=== PATIENT | male | born 1940 | race Caucasian/White ===

== ENCOUNTER 2016-10-22 10:24 | Inpatient (IN) | payer OTHER ==
[~2016-10-22] VITALS: Ht 180.3 cm; Wt 98.4 kg
[2016-10-22 10:52] LABS: ABSOLUTE BASOPHIL COUNT 0 /CUMM (0.0-0.2); ABSOLUTE EOSINOPHIL COUNT 0.1 /CUMM (0.0-0.7); ABSOLUTE GRANULOCYTE CT 4.5 /CUMM (1.4-6.5); ABSOLUTE LYMPH COUNT 1.8 /CUMM (1.2-3.4); ABSOLUTE MONOCYTE COUNT 0.5 /CUMM (0.10-0.60); BASOPHIL % 0.2 % (0.0-2.0); EOSINOPHIL % 1.5 % (0-5); GRANULOCYTE % 65.8 % (42.2-75.2); HEMATOCRIT 42.4 % (42-52); MEAN CORPUSCULAR HGB CONC 33.7 G/DL (33.0-37.0); MEAN CORPUSCULAR VOLUME 94.8 FL (80.0-94.0); MEAN PLATELET VOLUME 7.9 FL (7.4-10.4); PLATELET COUNT 157 /CUMM (130-400); RBC DISTRIBUTION WIDTH 13.4 % (11.5-14.5); RED BLOOD CELL CT 4.48 /CUMM (4.70-6.10); WHITE BLOOD CELL COUNT 6.9 /CUMM (4.8-10.8)
[2016-10-22] MEDS ORDERED: CRESTOR10 M1 PO (12:12)
[2016-10-22] MEDS ORDERED: TAMSULOSIN HCL0.4 M1 PO (12:12)
--- NOTE | 2016-10-22 13:38 | Cons- Cardiology ---
General Information and HPI Consulting Request Date of Consult: 10/22/16 Requested By: Dr. Abdullahi Reason for Consult: Recent onset atrial fibrillation/atrial flutter Source of Information: patient, family, old records Exam Limitations: no limitations History of Present Illness: 75 year old male known to me from recent office visits. He was in his usual state of health until earlier today when he developed worsening sustained palpitations. IN the ER he was noted to be in atrial flutter with a rapid rate which subsequently degenerated into atrial fibrillation. THe patient denies any other symptoms. He notes that he was working in the heat yesterday and also had "several" beers. In the ER he was given IV cardizem with improvement in the rate. Of note, he had a complete cardiovascular evaluation over the last month, including a stress test and echo which were normal Allergies/Medications Allergies: Coded Allergies: Penicillins (RASH 10/22/16) Home Med List: Rosuvastatin Calcium (Crestor) 10 MG TABLET 1 TAB PO DAILY CHOLESTEROL ( Reported) Tamsulosin HCl 0.4 MG CAP.ER.24H 1 CAP PO DAILY PROSTATE (Reported) Current Medications: Current Medications Sig/Urbano Start time Last Medication Dose Route Stop Time Status Admin Diltiazem HCl 10 MG ONCE ONE 10/22 1300 DC 10/22 IV 10/22 1301 1230 Diltiazem HCl 0 .STK-MED ONE 10/22 1222 DC .ROUTE Heparin Sodium/ 25,000 UNIT Q24H 10/22 1245 AC 10/22 Dextrose IV 1256 Dextrose/Water 500 ML Metoprolol Tartrate 0 .STK-MED ONE 10/22 1210 DC IV Metoprolol Tartrate 5 MG ONCE ONE 10/22 1200 DC 10/22 IV 10/22 1201 1210 Metoprolol Tartrate 0 .STK-MED ONE 10/22 1136 DC IV Metoprolol Tartrate 5 MG ONCE ONE 10/22 1130 DC 10/22 IV 10/22 1131 1141 Past History Travel History Traveled to [place] past 21 day Yes Medical History Cardiovascular: hyperlipidemia Exam & Diagnostic Data Vital Signs and I&O Vital Signs Date Time Temp Pulse Resp B/P B/P Pulse O2 O2 Flow FiO2 Mean Ox Delivery Rate 10/22 1249 79 18 139/88 98 Room Air 10/22 1230 136 130/91 10/22 1227 77 10/22 1218 138 16 133/91 98 Room Air 10/22 1210 130 137/90 10/22 1144 168 18 137/90 98 Room Air 10/22 1142 98 Room Air 10/22 1141 139 135/92 10/22 1035 98.6 139 18 135/92 98 Room Air Intake & Output 10/22 1600 10/22 0800 10/22 0000 10/21 1600 10/21 0800 10/21 0000 Intake Total 10 Output Total Balance 10 Intake, IV 10 Patient 217 lb Weight Weight Reported by Patient Measurement Method Physical Exam: General Appearance Alert, Oriented X3, Cooperative, VSS Skin Normal Neck Supple, No JVD, No thryomegaly, carotids normal bilaterally Cardiovascular Normal S1, Normal S2, irregular rate, 1/6 systolc murmur Lungs Clear to Auscultation bilaterally Abdomen Soft, No Tenderness Neurological Normal / nonfocal Extremities No Clubbing, No Cyanosis, Normal Pulses, No Tenderness/Swelling Labs/Rafat Results: Laboratory Tests 10/22 1040 Chemistry Sodium (137 - 145 mmol/L) 139 Potassium (3.5 - 5.1 mmol/L) 4.3 Chloride (98 - 107 mmol/L) 104 Carbon Dioxide (22 - 30 mmol/L) 25 Anion Gap (5 - 16) 10 BUN (9 - 20 mg/dL) 15 Creatinine (0.7 - 1.2 mg/dL) 0.8 Estimated GFR (>60 ml/min) > 60 BUN/Creatinine Ratio (7 - 25 %) 18.8 Glucose (65 - 99 mg/dL) 98 Calcium (8.4 - 10.2 mg/dL) 9.0 Phosphorus (2.5 - 4.5 mg/dL) 3.3 Magnesium (1.6 - 2.3 mg/dL) 2.1 Total Bilirubin (0.2 - 1.3 mg/dL) 0.8 AST (17 - 59 U/L) 28 ALT (21 - 72 U/L) 40 Alkaline Phosphatase (< 127 U/L) 63 Troponin I (<0.11 ng/ml) < 0.01 Total Protein (6.3 - 8.2 g/dL) 7.1 Albumin (3.5 - 5.0 g/dL) 4.2 Globulin (1.9 - 4.2 gm/dL) 2.9 Albumin/Globulin Ratio (1.1 - 2.2 %) 1.4 Coagulation PT Pending INR Pending APTT Pending Hematology CBC w Diff NO MAN DIFF REQ WBC (4.8 - 10.8 /CUMM) 6.9 RBC (4.70 - 6.10 /CUMM) 4.48 L Hgb (14.0 - 18.0 G/DL) 14.3 Hct (42 - 52 %) 42.4 MCV (80.0 - 94.0 FL) 94.8 H MCH (27.0 - 31.0 PG) 32.0 H RDW (11.5 - 14.5 %) 13.4 Plt Count (130 - 400 /CUMM) 157 MPV (7.4 - 10.4 FL) 7.9 Gran % (42.2 - 75.2 %) 65.8 Lymphocytes % (20.5 - 51.1 %) 25.9 Monocytes % (1.7 - 9.3 %) 6.6 Eosinophils % (0 - 5 %) 1.5 Basophils % (0.0 - 2.0 %) 0.2 Absolute Granulocytes (1.4 - 6.5 /CUMM) 4.5 Absolute Lymphocytes (1.2 - 3.4 /CUMM) 1.8 Absolute Monocytes (0.10 - 0.60 /CUMM) 0.5 Absolute Eosinophils (0.0 - 0.7 /CUMM) 0.1 Absolute Basophils (0.0 - 0.2 /CUMM) 0 PUBS MCHC (33.0 - 37.0 G/DL) 33.7 Diagnostic Data EKG Results ECG #1-atrial flutter with [address]-T changes ECG #2-atrial fibrillation with improved rate control. Assessment/Plan Assessment/Plan Assessment: 1. Atrial fibrillation/atrial flutter of recent onset 2. HLD 3. BPH Recommendations: -Monitor on 1 Goodman telemetry -IV Cardizem at 2.5 mg per hour, further adjusted as per her rate control -Full laboratory evaluation including troponin 2, TSH, etc. -There is no need to repeat echocardiogram. The patient has had an echo within the last 2 months. -Monitor overnight. If stable with reversion to sinus rhythm or with good rate control in a.m., transition to oral Cardizem for rate/rhythm control and begin Eliquis 5 mg twice a day for protection against cardioembolism. - Followuop with me in the office post discharge for further plans Consult Acknowledgment - Thank you for your consult request.
[2016-10-22 14:25] LABS: PT 10.1 SEC (9.4-12.5); PTT 29 SEC (25-37)
--- NOTE | 2016-10-22 14:26 | ED CARDIAC/CP/PALPITATIONS ---
History of Present Illness General Chief Complaint: Chest Pain Stated Complaint: SIB WALK IN FOR ABNORMAL EKG,CHEST PAIN Source: patient Exam Limitations: no limitations Vital Signs & Intake/Output Vital Signs & Intake/Output Vital Signs Date Time Temp Pulse Resp B/P B/P Pulse O2 O2 Flow FiO2 Mean Ox Delivery Rate 10/22 1840 98.2 91 16 137/71 99 Room Air 10/22 1649 98.0 84 18 128/76 98 Room Air 10/22 1445 97.0 89 16 103/59 98 Room Air 10/22 1440 126 10/22 1440 126 16 98 Room Air 10/22 1249 79 18 139/88 98 Room Air 10/22 1230 136 130/91 10/22 1227 77 10/22 1218 138 16 133/91 98 Room Air 10/22 1210 130 137/90 10/22 1144 168 18 137/90 98 Room Air 10/22 1142 98 Room Air 10/22 1141 139 135/92 10/22 1035 98.6 139 18 135/92 98 Room Air Allergies Coded Allergies: Penicillins (RASH 10/22/16) Reconcile Medications Rosuvastatin Calcium (Crestor) 10 MG TABLET 1 TAB PO DAILY CHOLESTEROL ( Reported) Tamsulosin HCl 0.4 MG CAP.ER.24H 1 CAP PO DAILY PROSTATE (Reported) Triage Note: 75 YO MALE TO TRIAGE FROM URGENT CARE. STATES HE WOKE UP THIS AM AND THOUGHT HE WAS HAVING ACID RELUX. STATES HE FELT HIS HEART RACING. DENIES PAIN. DENIES SOB. HR 130s AT THIS TIME. EKG COMPELTE ON ARRIVAL. PT TOOK ASPIRIN 375MG AT HOME PRIOR TO GOING TO URGENT CARE. Triage Nurses Notes Reviewed? yes HPI: Mr. Bautista is a 75 yo m w/ PMH of HLD and BPH denting the emergency department for palpitations. Patient states he noted this morning that his heart rate was about 130 bpm. He states he was working in the garden yesterday and was noted to be quite short of breath. He thought it was related to the warm weather and doing something physical outside. She did note some heart fluttering last night before going to bed. Patient denies any chest pain, cough, abdominal pain, nausea, vomiting, diarrhea. His states that he had recently been worked up by Dr. Pandey for atypical chest pain with a stress test, which was normal. She does endorse some shortness of breath with exertion. Past History Travel History Traveled to [place] past 21 day Yes Medical History Any Pertinent Medical History? see below for history Cardiovascular: hyperlipidemia Surgical History Surgical History: none Psychosocial History What is your primary language Urdu Tobacco Use: Never used Family History Hx Contributory? No Review of Systems Review of Systems Constitutional: Reports: see HPI. EENTM: Reports: no symptoms. Respiratory: Reports: short of breath. Cardiovascular: Reports: palpitations. GI: Reports: no symptoms. Genitourinary: Reports: no symptoms. Musculoskeletal: Reports: no symptoms. Skin: Reports: no symptoms. Neurological/Psychological: Reports: no symptoms. Hematologic/Endocrine: Reports: no symptoms. Immunologic/Allergic: Reports: no symptoms. All Other Systems: Reviewed and Negative Physical Exam Physical Exam General Appearance: well developed/nourished, no apparent distress, alert, awake , comfortable Head: atraumatic, normal appearance Eyes: Bilateral: normal appearance, PERRL, EOMI. Ears, Nose, Throat: normal pharynx, normal ENT inspection, hearing grossly normal Neck: normal inspection, supple, full range of motion Respiratory: normal breath sounds, chest non-tender, no respiratory distress Cardiovascular: regular rate/rhythm Gastrointestinal: normal bowel sounds Rectal: deferred Back: normal inspection, normal range of motion Extremities: normal inspection, normal capillary refill, normal range of motion, no edema Neurologic/Psych: no motor/sensory deficits, awake, alert, oriented x 3, normal gait, normal mood/affect Skin: intact, normal color, warm/dry Core Measures ACS in differential dx? Yes ASA ordered for poss ACS? no already given today Severe Sepsis Present: No Septic Shock Present: No Progress Differential Diagnosis: AMI, atrial fibrillation, CHF/pulm edema, hyperkalemia, hypovolemia, hyperthyroid, PVCs/PACs, unstable angina, V-fib/V-Tach, atrial flutter Plan of Care: Orders Procedure Date/time Status CBC WITHOUT DIFFERENTIAL 10/23 06 Active BASIC ELECTROLYTES PLUS BUN&CR 10/23 0600 Active Heart Healthy Diet 10/22 D Active TROPONIN LEVEL 10/22 2300 Active EKG 10/22 2300 Active PARTIAL THROMBOPLASTIN TIME 10/22 1900 Active TROPONIN LEVEL 10/22 1700 Active EKG 10/22 1700 Active Pathway - chart 10/22 1629 Active Code Status 10/22 1629 Active Add-on Test (ER Only) 10/22 1601 Active ED Holding Orders 10/22 1559 Active Vital Signs 10/22 1559 Active Code Status 10/22 1559 Complete Admit to inpatient 10/22 1425 Active Patient Data 10/22 1333 Active Add-on Test (ER Only) 10/22 1247 Active PARTIAL THROMBOPLASTIN TIME 10/22 1243 Complete EKG 10/22 1227 Active Add-on Test (ER Only) 10/22 1125 Active Intake & Output 10/22 1111 Active THYROID STIMULATING HORMONE 10/22 1040 Active PROTHROMBIN TIME 10/22 1040 Complete PHOSPHORUS 10/22 1040 Active MAGNESIUM 10/22 1040 Active GLYCOSYLATED HGB 10/22 1040 Active FREE T4 10/22 1040 Active TROPONIN LEVEL 10/22 1037 Active COMPREHENSIVE METABOLIC PANEL 10/22 1037 Active CBC WITHOUT DIFFERENTIAL 10/22 1037 Complete EKG 10/22 1026 Active Pathway - chart 10/22 UNK Active House Staff 10/22 UNK Active Lab Add-on Test 10/22 UNK Active VTE Mechanical Prophylaxis 10/22 UNK Active Vital Signs 10/22 UNK Active Telemetry/Conventions Reservationist 10/22 UNK Active Current Medications Sig/Urbano Start time Last Medication Dose Stop Time Status Admin Tamsulosin HCl 0.4 MG DAILY 10/23 1000 AC (Flomax) Atorvastatin Calcium 40 MG 1700 10/22 1700 AC (Lipitor) Acetaminophen 650 MG Q6P PRN 10/22 1630 AC (Tylenol) Hydromorphone HCl 0.5 MG Q4P PRN 10/22 1630 AC (Dilaudid) Oxycodone/ 1 TAB Q6P PRN 10/22 1630 AC Acetaminophen (Percocet) Diltiazem HCl 125 MG Q24H 10/22 1545 AC 10/22 (Cardizem DRIP) 1640 Sodium Chloride 100 ML (Normal Saline 0.9%) Ceftriaxone Sodium 1,000 MG ONCE ONE 10/22 1445 CAN (Rocephin) 10/22 1446 Diltiazem HCl 90 MG ONCE ONE 10/22 1445 CAN (Cardizem) 10/22 1446 Heparin Sodium/ 25,000 UNIT Q24H 10/22 1245 AC 10/22 Dextrose 1256 (Heparin) Dextrose/Water 500 ML (D5W) Laboratory Tests 10/22/16 1756: Troponin I Pending 10/22/16 1040: Anion Gap 10, Estimated GFR > 60, BUN/Creatinine Ratio 18.8, Glucose 98, Hemoglobin A1c Pending, Calcium 9.0, Phosphorus 3.3, Magnesium 2.1, Total Bilirubin 0.8, AST 28, ALT 40, Alkaline Phosphatase 63, Troponin I < 0.01, Total Protein 7.1, Albumin 4.2, Globulin 2.9, Albumin/Globulin Ratio 1.4, TSH 0.818, Free T4 1.20, PT 10.1, INR 0.96, APTT 29, CBC w Diff NO MAN DIFF REQ, RBC 4.48 L, MCV 94.8 H, MCH 32.0 H, RDW 13.4, MPV 7.9, Gran % 65.8, Lymphocytes % 25.9, Monocytes % 6.6, Eosinophils % 1.5, Basophils % 0.2, Absolute Granulocytes 4.5, Absolute Lymphocytes 1.8, Absolute Monocytes 0.5, Absolute Eosinophils 0.1, Absolute Basophils 0, PUBS MCHC 33.7 Patient is generally well-appearing male with tachycardia. Heart rate noted to be in the 130s and regular. EKG concerning for atrial flutter with block and rapid ventricular response. Patient is chest pain-free. states she gave him a full aspirin this morning. Given his constellation of symptoms with palpitations and increased shortness of breath yesterday, likely that the patient was in A. fib flutter for at least 24 hours. Recent stress is otherwise unremarkable. Patient given metoprolol 5 mg IV push with minimal change in heart rate. A repeat dose of metoprolol 5 mg IV push was given with again minimal effect on heart rate. At this point in time patient was given diltiazem 10 mg IV push with improvement in heart rate. Repeat EKG shows that the patient is in atrial flutter with a 4-1 AV block at a rate of 69. 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 Patient had another episode of a flutter with RVR, was given 5 mg IV tilt which actually stopped the flutter. Patient was then started on a diltiazem drip. Patient and are comfortable with the plan. Patient will be admitted for IV diltiazem as well as IV heparin until he can be transitioned into a by mouth anticoagulated and discharged safely. ([facility],OBED) Initial ED EKG: atrial flutter with rapid ventricular response Prior EKG: changed (previous normal sinus rhythm) Departure Departure Time of Disposition: 1702 Disposition: STILL A PATIENT Condition: Stable Clinical Impression Primary Impression: Atrial flutter with rapid ventricular response Secondary Impressions: Palpitations Referrals: CYNTHIA COX MD (PCP/Family) Departure Forms: Customer Survey General Discharge Information Admission Note Spoke With: CYNTHIA COX MD Documentation of Exam: Documentation of any treatments & extenuating circumstances including Concerns Regarding Discharge (functional status, medication knowledge or non-compliance, living conditions, etc.) that warrant an admission rather than observation: 75-year-old male being admitted as an inpatient for atrial flutter with rapid ventricular response on diltiazem infusion IV. Patient was also started on an IV heparin drip as this has been ongoing for likely over 24 hours. Patient will require an ultrasound as an inpatient to assess for possible valvular issues ( small thombus that might have possible formed) prior to cardioversion. Critical Care Note Critical Care Note Critical Care Time: 30-74 min (32)
--- NOTE | 2016-10-22 15:45 | History & Physical ---
See Addendum General Information and HPI Source of Information: patient, family, old records Exam Limitations: no limitations History of Present Illness: This is a 75-year-old male with a past medical history of hyperlipidemia and benign prostate hyperplasia who comes to the [facility] with increased palpitations and feeling off"fluttering sensation" in his chest. The patient was within normal limits in the morning when he started feeling that his heart was beating too fast. He went to see an outpatient outpatient walk-in clinic who when checked his pulse found to be irregular and beating fast and recommended to come to the ER further evaluation Patient's initial heart rate was between 120s to 140s and the heart monitor showed atrial flutter.. Fibrillation The patient did not exhibit any chest pain. The patient still had some mild chest discomfort with irregular heartbeat in the ER but was normalized after giving Cardizem push. The patient does not have any significant risk factors except for hyperlipidemia. He is he's not a diabetic, not hypertensive. He does not smoke. The patient also received one push of metoprolol for which he did not respond . Allergies/Medications Allergies: Coded Allergies: Penicillins (RASH 10/22/16) Home Med list Rosuvastatin Calcium (Crestor) 10 MG TABLET 1 TAB PO DAILY CHOLESTEROL ( Reported) Tamsulosin HCl 0.4 MG CAP.ER.24H 1 CAP PO DAILY PROSTATE (Reported) Past History Travel History Traveled to [place] past 21 day Yes Medical History Cardiovascular: hyperlipidemia Surgical History Surgical History: none Past Family/Social History Family History Relations & Conditions if any MOTHER Relation not specified for: FH: hypertension Review of Systems Review of Systems Constitutional: Reports: see HPI. EENTM: Reports: see HPI. Cardiovascular: Reports: see HPI. Denies: chest pain, orthopena, palpitations, peripheral edema. Respiratory: Reports: see HPI. GI: Reports: see HPI. Genitourinary: Reports: see HPI. Musculoskeletal: Reports: see HPI. Exam & Diagnostic Data Last 24 Hrs of Vital Signs/I&O Vital Signs Date Time Temp Pulse Resp B/P B/P Pulse O2 O2 Flow FiO2 Mean Ox Delivery Rate 10/22 1445 97.0 89 16 103/59 98 Room Air 10/22 1440 126 10/22 1440 126 16 98 Room Air 10/22 1249 79 18 139/88 98 Room Air 10/22 1230 136 130/91 10/22 1227 77 10/22 1218 138 16 133/91 98 Room Air 10/22 1210 130 137/90 10/22 1144 168 18 137/90 98 Room Air 10/22 1142 98 Room Air 10/22 1141 139 135/92 10/22 1035 98.6 139 18 135/92 98 Room Air Intake & Output 10/22 1600 10/22 0800 10/22 0000 Intake Total 10 Output Total Balance 10 Intake, IV 10 Patient 217 lb Weight Weight Reported by Patient Measurement Method Physical Exam General Appearance Alert, Oriented X3, Cooperative Skin No Rashes, No Breakdown, No Significant Lesion Sepsis Skin Exam (color): Normal for Ethnicity Neck Supple, No JVD, No thryomegaly Cardiovascular Normal S1, Normal S2, irregular rate. Lungs Clear to Auscultation, Normal Air Movement Abdomen Soft, No Tenderness Neurological Normal Gait Extremities No Clubbing, No Cyanosis, Normal Pulses, No Tenderness/Swelling Diagnostic Data EKG Results ECG #1-atrial flutter with [address]-T changes ECG #2-atrial fibrillation with improved rate control. Assessment/Plan Assessment: This is a [age]-year-old male with a past medical history of hyperlipidemia who presented to the [facility] with increased palpitations and slight discomfort in the chest. The patient was found to be rapid atrial fibrillation with rapid ventricular response in the ER Vitals at the time of admission showed heart rate of 126, respiration rate of 16 , saturation 98% on room air, blood pressure of 138/78 Labs shows: WBC of 6.9, hemoglobin of 14.3 hematoc sodium of 139, potassium of 4.3 rest of the electrolytes within normal limits EKG shows ECG #1-atrial flutter with [address]-T changes ECG #2-atrial fibrillation with improved rate control. Assessment 1. New onset atrial fibrillation with rapid ventricular response:EUGENIA VAS scorre is 1(HbA1c still pending) 2. History of hyperlipidemia 3. History of benign prostate hyperplasia Plan Admit to telemetry floor Serial troponins and EKG Check Hba1c to calculate EUGENIA VAS score Will check TSH and magnesium levels Continue with IV Cardizem drip at 2.5 (HR BETWEEEN LATE 80'S)and titrate. The patient should be on the Cardizem drip for at least 24 hours Continue with IV heparin for full anticoagulation Patient might be converted to normal anticoagulation in the morning Plan to switch him to oral medications at morning if remains hemodynamically stable DVT prophylaxis as above Appreciate Dr. Turcios's input Patient is full code As Ranked By This Provider Problem List: 1. Atrial fibrillation Core Measures/Miscellaneous Acute Coronary Syndrome ACS Diagnosis: No Cerebrovascular Accident CVA/TIA Diagnosis: No Congestive Heart Failure CHF Diagnosis: No Venous Thromboembolism VTE Risk Factors: Acute medical illness, Age > 40 No Mech VTE prophylaxis d/t: VTE low risk, No contraindications No VTE Pharm Prophylaxis d/t: VTE low risk, No contraindications VTE Diagnosis: No VTE Type: NONE VTE Confirmed by (Test): NONE Severe Sepsis Severe Sepsis Present: No Septic Shock Septic Shock Present: No Miscellaneous Documentation Attending Case Discussed With: CYNTHIA COX MD Primary Care Physician: CYNTHIA COX MD Patient sees these Specialists dr turcios Level of Patient Care: Telemetry
[2016-10-22 19:47] LABS: PTT 80 SEC (25-37)
[2016-10-22 21:54] VITALS: BP 122/80
[2016-10-23 00:17] VITALS: BP 128/84
[2016-10-23 07:53] LABS: ABSOLUTE BASOPHIL COUNT 0 /CUMM (0.0-0.2); ABSOLUTE EOSINOPHIL COUNT 0.2 /CUMM (0.0-0.7); ABSOLUTE GRANULOCYTE CT 4.3 /CUMM (1.4-6.5); ABSOLUTE LYMPH COUNT 2.3 /CUMM (1.2-3.4); ABSOLUTE MONOCYTE COUNT 0.5 /CUMM (0.10-0.60); BASOPHIL % 0.4 % (0.0-2.0); GRANULOCYTE % 58.2 % (42.2-75.2); HEMATOCRIT 44.7 % (42-52); MEAN CORPUSCULAR HGB 32.3 PG (27.0-31.0); MEAN CORPUSCULAR HGB CONC 33.4 G/DL (33.0-37.0); MEAN CORPUSCULAR VOLUME 96.5 FL (80.0-94.0); MEAN PLATELET VOLUME 8.2 FL (7.4-10.4); PLATELET COUNT 158 /CUMM (130-400); RBC DISTRIBUTION WIDTH 13.3 % (11.5-14.5); RED BLOOD CELL CT 4.63 /CUMM (4.70-6.10); WHITE BLOOD CELL COUNT 7.4 /CUMM (4.8-10.8)
[2016-10-23 08:03] VITALS: BP 112/70
[2016-10-23 08:53] LABS: PTT > 120 SEC (25-37)
--- NOTE | 2016-10-23 09:17 | Patient Discharge Instructions ---
Discharge Instructions General Discharge Information You were seen/treated for: paplitataions and elevate irregular heart rate Special Instructions: you need to be strictly complaint with the new blood thinner (Eliquis) and medication to control your heart rate (Cardizem) that is prescribed to you. Please set an appointment with dr turcios 1 week of discharge. Acute Coronary Syndrome Inclusion Criteria At DC or during hospital stay patient has or had the following: ACS DIAGNOSIS No Discharge Core Measures Meds if any: Prescribed or Continued at Discharge Meds if any: NOT Prescribed or Continued at Discharge Congestive Heart Failure Inclusion Criteria At DC or during hospital stay patient has or had the following: CHF DIAGNOSIS No Discharge Core Measures Meds if any: Prescribed or Continued at Discharge Meds if any: NOT Prescribed or Continued at Discharge Cerebrovascular accident Inclusion Criteria At DC or during hospital stay patient has or had the following: CVA/TIA Diagnosis No Discharge Core Measures Meds if any: Prescribed or Continued at Discharge Meds if any: NOT Prescribed or Continued at Discharge Venous thromboembolism Inclusion Criteria VTE Diagnosis No VTE Type NONE VTE Confirmed by (Test) NONE Discharge Core Measures - Per Current guidelines, there needs to be overlap - treatment for the first 5 days of Warfarin therapy. - If discharged on Warfarin prior to 5 days of - overlap therapy, the patient will need to be - assessed for post discharge needs including - *Post discharge parental anticoagulation - *Warfarin and/or parental anticoagulation education - *Follow up date to check INR post discharge At least 5 days overlap therapy as Inpatient No Meds if any: Prescribed or Continued at Discharge Note: Overlap Therapy is Warfarin and Anticoagulant Meds if any: NOT Prescribed or Continued at Discharge
--- NOTE | 2016-10-23 11:57 | PN- Cardiology ---
Subjective Subjective: The patient is feeling well. He remains in atrial fibrillation with rate under control. He had episodes of rapid rate overnight. He is currently on Cardizem and heparin drips. Objective Vital Signs and I&Os Vital Signs Date Time Temp Pulse Resp B/P B/P Pulse O2 O2 Flow FiO2 Mean Ox Delivery Rate 10/23 0910 96 112/70 10/23 0803 98.6 96 18 112/70 94 Room Air 10/23 0017 97.7 79 20 128/84 95 Room Air 10/22 2154 97.9 70 20 122/80 96 Room Air 10/22 2033 96.7 76 20 128/79 95 Room Air 10/22 1840 98.2 91 16 137/71 99 Room Air 10/22 1649 98.0 84 18 128/76 98 Room Air 10/22 1445 97.0 89 16 103/59 98 Room Air 10/22 1440 126 10/22 1440 126 16 98 Room Air 10/22 1249 79 18 139/88 98 Room Air 10/22 1230 136 130/91 10/22 1227 77 10/22 1218 138 16 133/91 98 Room Air 10/22 1210 130 137/90 Intake & Output 10/23 1600 10/23 0800 10/23 0000 10/22 1600 10/22 0800 10/22 0000 Intake Total 575 360 10 Output Total 400 950 600 Balance 175 -590 -590 Intake, IV 215 10 Intake, Oral 360 360 Output, Urine 400 950 600 Patient 217 lb 217 lb Weight Weight Standing Scale Reported by Patient Measurement Method Physical Exam: Gen: NAD HEENT: normal Lungs: clear to auscultation, normal resp. effort Heart: Irregularly irregular, S1, S2, 1/6 systolic murmur Abdomen: Soft, nontender, no masses Extremities: No clubbing, cyanosis, or edema. Neuro: Alert and oriented x 3, cranial nerves intact Current Medications: Current Medications Sig/Urbano Start time Last Medication Dose Route Stop Time Status Admin Acetaminophen 650 MG Q6P PRN 10/22 1630 AC PO Apixaban 5 MG BID 10/23 1200 UNVr PO Atorvastatin Calcium 40 MG 1700 10/22 1700 AC PO Ceftriaxone Sodium 1,000 MG ONCE ONE 10/22 1445 CAN IV 10/22 1446 Diltiazem HCl 120 MG DAILY 10/23 1200 UNVr PO Diltiazem HCl 0 .STK-MED ONE 10/23 0845 DC IV 10/23 0846 Diltiazem HCl 125 MG Q24H 10/23 0845 DC 10/23 Dextrose/Water 100 ML IV 0911 Diltiazem HCl 60 MG Q8 10/23 0837 DC PO Diltiazem HCl 0 .STK-MED ONE 10/22 1636 DC IV Diltiazem HCl 125 MG Q24H 10/22 1545 DC 10/22 Sodium Chloride 100 ML IV 1640 Diltiazem HCl 10 MG ONCE ONE 10/22 1445 DC 10/22 IV 10/22 1446 1440 Diltiazem HCl 0 .STK-MED ONE 10/22 1445 DC .ROUTE Diltiazem HCl 90 MG ONCE ONE 10/22 1445 CAN PO 10/22 1446 Diltiazem HCl 10 MG ONCE ONE 10/22 1300 DC 10/22 IV 10/22 1301 1230 Diltiazem HCl 0 .STK-MED ONE 10/22 1222 DC .ROUTE Heparin Sodium/ 25,000 UNIT Q24H 10/22 1245 AC 10/23 Dextrose IV 0531 Dextrose/Water 500 ML Hydromorphone HCl 0.5 MG Q4P PRN 10/22 1630 AC IV Metoprolol Tartrate 0 .STK-MED ONE 10/22 1210 DC IV Metoprolol Tartrate 5 MG ONCE ONE 10/22 1200 DC 10/22 IV 10/22 1201 1210 Oxycodone/ 1 TAB Q6P PRN 10/22 1630 AC Acetaminophen PO Tamsulosin HCl 0.4 MG DAILY 10/23 1000 AC 10/23 PO 0910 Results Last 48 Hrs of Labs/Mics: Laboratory Tests 10/23/16 0646: Anion Gap 10, Estimated GFR > 60, BUN/Creatinine Ratio 17.5, APTT > 120 *H, CBC w Diff NO MAN DIFF REQ, RBC 4.63 L, MCV 96.5 H, MCH 32.3 H, RDW 13.3, MPV 8.2 , Gran % 58.2, Lymphocytes % 31.2, Monocytes % 7.2, Eosinophils % 3.0, Basophils % 0.4, Absolute Granulocytes 4.3, Absolute Lymphocytes 2.3, Absolute Monocytes 0.5, Absolute Eosinophils 0.2, Absolute Basophils 0, PUBS MCHC 33.4 10/22/16 2247: Troponin I < 0.01 10/22/16 1915: APTT 80 H 10/22/16 1756: Troponin I 0.01 10/22/16 1040: Anion Gap 10, Estimated GFR > 60, BUN/Creatinine Ratio 18.8, Glucose 98, Hemoglobin A1c 5.5, Calcium 9.0, Phosphorus 3.3, Magnesium 2.1, Total Bilirubin 0.8, AST 28, ALT 40, Alkaline Phosphatase 63, Troponin I < 0.01, Total Protein 7.1, Albumin 4.2, Globulin 2.9, Albumin/Globulin Ratio 1.4, TSH 0.818, Free T4 1.20, PT 10.1, INR 0.96, APTT 29, CBC w Diff NO MAN DIFF REQ, RBC 4.48 L, MCV 94.8 H, MCH 32.0 H, RDW 13.4, MPV 7.9, Gran % 65.8, Lymphocytes % 25.9, Monocytes % 6.6, Eosinophils % 1.5, Basophils % 0.2, Absolute Granulocytes 4.5, Absolute Lymphocytes 1.8, Absolute Monocytes 0.5, Absolute Eosinophils 0.1, Absolute Basophils 0, PUBS MCHC 33.7 Assessment/Plan Assessment/Plan Assessment: * Paroxysmal atrial flutter and atrial fibrillation, rate under control Plan: * Start Eliquis 5 mg by mouth twice a day, first dose now * Discontinue IV heparin when Eliquis is given * Start Cardizem CD 120 mg daily, with first dose now * Discontinue Cardizem drip and by mouth Cardizem was given * Discharge to home at 4:00 today if stable. * Follow up with Dr. Pandey in one week. Continue telemetry? Yes
--- NOTE | 2016-10-23 12:14 | PN- Att Addend ---
Attending Addendum Attending Brief Note Patient feeling better earlier this morning when he got up he got the feeling of palpitations. The monitor showed atrial flutter the rate was a little faster earlier this morning the diltiazem drip was restarted and slowly taper down, his on heparin patient was seen by cardiology Dr. Mayorga this morning was decided to start long-acting Cardizem was switched him to eliquis Durand anticoagulation if stable late afternoon his heart rate start disposition plans Intake & Output 10/23 1600 10/23 0800 10/23 0000 10/22 1600 10/22 0800 10/22 0000 Intake Total 575 360 10 Output Total 400 950 600 Balance 175 -590 -590 Intake, IV 215 10 Intake, Oral 360 360 Output, Urine 400 950 600 Patient 217 lb 217 lb Weight Weight Standing Scale Reported by Patient Measurement Method Current Medications Sig/U[place] Start time Last Medication Dose Route Stop Time Status Admin Acetaminophen 650 MG Q6P PRN 10/22 1630 AC PO Apixaban 5 MG BID 10/23 1200 AC PO Atorvastatin Calcium 40 MG 1700 10/22 1700 AC PO Ceftriaxone Sodium 1,000 MG ONCE ONE 10/22 1445 CAN IV 10/22 1446 Diltiazem HCl 120 MG DAILY 10/23 1200 AC PO Diltiazem HCl 0 .STK-MED ONE 10/23 0845 DC IV 10/23 0846 Diltiazem HCl 125 MG Q24H 10/23 0845 DC 10/23 Dextrose/Water 100 ML IV 0911 Diltiazem HCl 60 MG Q8 10/23 0837 DC PO Diltiazem HCl 0 .STK-MED ONE 10/22 1636 DC IV Diltiazem HCl 125 MG Q24H 10/22 1545 DC 10/22 Sodium Chloride 100 ML IV 1640 Diltiazem HCl 10 MG ONCE ONE 10/22 1445 DC 10/22 IV 10/22 1446 1440 Diltiazem HCl 0 .STK-MED ONE 10/22 1445 DC .ROUTE Diltiazem HCl 90 MG ONCE ONE 10/22 1445 CAN PO 10/22 1446 Diltiazem HCl 10 MG ONCE ONE 10/22 1300 DC 10/22 IV 10/22 1301 1230 Diltiazem HCl 0 .STK-MED ONE 10/22 1222 DC .ROUTE Heparin Sodium/ 25,000 UNIT Q24H 10/22 1245 AC 10/23 Dextrose IV 0531 Dextrose/Water 500 ML Hydromorphone HCl 0.5 MG Q4P PRN 10/22 1630 AC IV Oxycodone/ 1 TAB Q6P PRN 10/22 1630 AC Acetaminophen PO Tamsulosin HCl 0.4 MG DAILY 10/23 1000 AC 10/23 PO 0910 Laboratory Tests 10/23/16 0646: Anion Gap 10, Estimated GFR > 60, BUN/Creatinine Ratio 17.5, APTT > 120 *H, CBC w Diff NO MAN DIFF REQ, RBC 4.63 L, MCV 96.5 H, MCH 32.3 H, RDW 13.3, MPV 8.2 , Gran % 58.2, Lymphocytes % 31.2, Monocytes % 7.2, Eosinophils % 3.0, Basophils % 0.4, Absolute Granulocytes 4.3, Absolute Lymphocytes 2.3, Absolute Monocytes 0.5, Absolute Eosinophils 0.2, Absolute Basophils 0, PUBS MCHC 33.4 10/22/16 2247: Troponin I < 0.01 10/22/16 1915: APTT 80 H 10/22/16 1756: Troponin I 0.01 10/22/16 1040: Anion Gap 10, Estimated GFR > 60, BUN/Creatinine Ratio 18.8, Glucose 98, Hemoglobin A1c 5.5, Calcium 9.0, Phosphorus 3.3, Magnesium 2.1, Total Bilirubin 0.8, AST 28, ALT 40, Alkaline Phosphatase 63, Troponin I < 0.01, Total Protein 7.1, Albumin 4.2, Globulin 2.9, Albumin/Globulin Ratio 1.4, TSH 0.818, Free T4 1.20, PT 10.1, INR 0.96, APTT 29, CBC w Diff NO MAN DIFF REQ, RBC 4.48 L, MCV 94.8 H, MCH 32.0 H, RDW 13.4, MPV 7.9, Gran % 65.8, Lymphocytes % 25.9, Monocytes % 6.6, Eosinophils % 1.5, Basophils % 0.2, Absolute Granulocytes 4.5, Absolute Lymphocytes 1.8, Absolute Monocytes 0.5, Absolute Eosinophils 0.1, Absolute Basophils 0, PUBS MCHC 33.7
--- NOTE | 2016-10-23 12:22 | PN- Housestaff ---
Subjective Follow-up For: Atrial fibrillation Tele-Events Since Last Visit: Atria flutter, heart rate 71-103, at 2:14 he had episode of bradycardia down to 42 Subjective: Hemodynamically stable, heartrate is in the 90s, saturating well on room air, no acute overnight events reported. Patient is complaining of feeling of heaviness in the middle of his chest that he gets when his heart rate increased more than 105/M Patient denies other current active complaints Review of Systems Constitutional: Reports: no symptoms. Objective Last 24 Hrs of Vital Signs/I&O Vital Signs Date Time Temp Pulse Resp B/P B/P Pulse O2 O2 Flow FiO2 Mean Ox Delivery Rate 10/23 0910 96 112/70 10/23 0803 98.6 96 18 112/70 94 Room Air 10/23 0017 97.7 79 20 128/84 95 Room Air 10/22 2154 97.9 70 20 122/80 96 Room Air 10/22 2033 96.7 76 20 128/79 95 Room Air 10/22 1840 98.2 91 16 137/71 99 Room Air 10/22 1649 98.0 84 18 128/76 98 Room Air Intake & Output 10/23 1600 10/23 0800 10/23 0000 Intake Total 480 575 360 Output Total 400 950 Balance 480 175 -590 Intake, IV 215 Intake, Oral 480 360 360 Output, Urine 400 950 Patient 98.43 kg Weight Weight Standing Scale Measurement Method Physical Exam General Appearance: Alert, Oriented X3, Cooperative, No Acute Distress HEENT: Atraumatic, PERRLA, EOMI, Mucous Membr. moist/pink Neck: No JVD Cardiovascular: Normal S1, Normal S2, No Murmurs, irregular Lungs: Clear to Auscultation, Normal Air Movement Abdomen: Soft, No Tenderness Neurological: Normal Speech Extremities: No Clubbing, No Cyanosis, No Edema Current Medications: Current Medications Sig/Urb[place] Start time Last Medication Dose Route Stop Time Status Admin Acetaminophen 650 MG Q6P PRN 10/22 1630 AC PO Apixaban 5 MG BID 10/23 1200 AC 10/23 PO 1250 Atorvastatin Calcium 40 MG 1700 10/22 1700 AC PO Diltiazem HCl 120 MG DAILY 10/23 1200 AC 10/23 PO 1250 Diltiazem HCl 0 .STK-MED ONE 10/23 0845 DC IV 10/23 0846 Diltiazem HCl 125 MG Q24H 10/23 0845 DC 10/23 Dextrose/Water 100 ML IV 0911 Diltiazem HCl 60 MG Q8 10/23 0837 DC PO Diltiazem HCl 0 .STK-MED ONE 10/22 1636 DC IV Diltiazem HCl 125 MG Q24H 10/22 1545 DC 10/22 Sodium Chloride 100 ML IV 1640 Diltiazem HCl 90 MG ONCE ONE 10/22 1445 CAN PO 10/22 1446 Heparin Sodium/ 25,000 UNIT Q24H 10/22 1245 AC 10/23 Dextrose IV 0531 Dextrose/Water 500 ML Hydromorphone HCl 0.5 MG Q4P PRN 10/22 1630 AC IV Oxycodone/ 1 TAB Q6P PRN 10/22 1630 AC Acetaminophen PO Patient Medication 1 ED .STK-MED ONE 10/23 1405 DC Teaching ED 10/23 1406 Tamsulosin HCl 0.4 MG DAILY 10/23 1000 AC 10/23 PO 0910 Last 24 Hrs of Lab/Rafat Results Last 24 Hrs of Labs/Mics: Laboratory Tests 10/23/16 0646: Anion Gap 10, Estimated GFR > 60, BUN/Creatinine Ratio 17.5, APTT > 120 *H, CBC w Diff NO MAN DIFF REQ, RBC 4.63 L, MCV 96.5 H, MCH 32.3 H, RDW 13.3, MPV 8.2 , Gran % 58.2, Lymphocytes % 31.2, Monocytes % 7.2, Eosinophils % 3.0, Basophils % 0.4, Absolute Granulocytes 4.3, Absolute Lymphocytes 2.3, Absolute Monocytes 0.5, Absolute Eosinophils 0.2, Absolute Basophils 0, PUBS MCHC 33.4 10/22/16 2247: Troponin I < 0.01 10/22/16 1915: APTT 80 H 10/22/16 1756: Troponin I 0.01 Assessment/Plan Assessment: This is a [age]-year-old male with a past medical history of hyperlipidemia who presented to the [facility] with increased palpitations and slight discomfort in the chest. The patient was found to be rapid atrial fibrillation with rapid ventricular response in the ER. Acute coronary syndrome was ruled out with serial troponin and EKG. Assessment 1. New onset atrial flutter 2. History of hyperlipidemia 3. History of benign prostate hyperplasia Plan * DC heparin and Start Eliquis 5 mg BID * Start Cardizem CD 120 mg daily * As per cardiology Discharge to home at 4:00 today if stable. * Patient will be instructed to follow up with Dr. Pandey in one week. * Continue tamsulosin * Continue atorvastatin Heart healthy DVT prophylaxis as above Full code Problem List: 1. Atrial flutter with rapid ventricular response Pain Ratin Pain Location: NA Pain Goal: Remain pain free Pain Plan: See A&P Tomorrow's Labs & Rationales: None as patient is stable
[2016-10-23] MEDS ORDERED: CARDIZEM CD120 M2 PO (15:48)
[2016-10-23] MEDS ORDERED: ELIQUIS5 M1 PO (15:49)
[2016-10-23 16:54] VITALS: BP 98/67
[2016-10-23 23:00] VITALS: BP 107/82
--- NOTE | 2016-10-24 08:52 | PN- Housestaff ---
JOY YOUNG,[facility] 10/24/16 0851: Subjective Follow-up For: 1. Atrial fibrillation with rapid ventricular rate Tele-Events Since Last Visit: Niharika maldonado between 86-119, tachycardiac to 150s in the morning around 8:15 when he went to the bathroom and shower Subjective: The patient had been doing relatively well until this morning when he started having rapid heart rate again. At that time he was taking a shower and reported some heaviness of the chest along with some palpitations. Denies any shortness of breath. Denies any nausea vomiting diarrhea or abdominal pain. Review of Systems Constitutional: Reports: see HPI. EENTM: Reports: no symptoms. Cardiovascular: Reports: see HPI, palpitations. Respiratory: Reports: no symptoms. Gastrointestinal: Reports: no symptoms. Genitourinary: Reports: no symptoms. Musculoskeletal: Reports: no symptoms. Skin: Reports: no symptoms. Neurological/Psychological: Reports: no symptoms. Objective Last 24 Hrs of Vital Signs/I&O Vital Signs Date Time Temp Pulse Resp B/P B/P Pulse O2 O2 Flow FiO2 Mean Ox Delivery Rate 10/24 1540 98.0 76 18 122/68 95 Room Air 10/24 1233 108/70 10/24 1101 106/80 10/24 0904 114 104/69 10/24 0902 99.5 147 18 78/42 97 10/23 2300 98.2 73 18 107/82 93 Room Air Intake & Output 10/24 1600 10/24 0800 10/24 0000 Intake Total 200 120 Output Total Balance 200 120 Intake, Oral 200 120 Physical Exam General Appearance: Alert, Oriented X3, Cooperative, No Acute Distress HEENT: Atraumatic, PERRLA, EOMI, Mucous Membr. moist/pink Neck: Supple, No JVD Cardiovascular: Normal S1, Normal S2, No Murmurs, irregularly irregular Lungs: Clear to Auscultation, Normal Air Movement Abdomen: Normal Bowel Sounds, Soft, No Tenderness, No Hepatospenomegaly Neurological: Normal Gait, Normal Speech, Strength at 5/5 X4 Ext, Normal Tone, Sensation Intact, Cranial Nerves 3-12 NL Extremities: No Cyanosis, No Edema, Normal Pulses Vascular: Pulses Symmetrical Current Medications: Current Medications Sig/U[place] Start time Last Medication Dose Route Stop Time Status Admin Acetaminophen 650 MG Q6P PRN 10/22 1630 DCD PO Apixaban 5 MG BID 10/23 1200 DCD 10/24 PO 1101 Atorvastatin Calcium 40 MG 1700 10/22 1700 DCD 10/23 PO 1644 Calcium Carbonate 500 MG DAILY 10/24 0730 DC PO Calcium Carbonate 500 MG DAILY 10/24 0730 DCD PO Diltiazem HCl 30 MG ONCE ONE 10/24 1130 DC 10/24 PO 10/24 1131 1233 Diltiazem HCl 120 MG DAILY 10/23 1200 DCD 10/24 PO 0704 Heparin Sodium/ 25,000 UNIT Q24H 10/22 1245 DC 10/23 Dextrose IV 0531 Dextrose/Water 500 ML Hydromorphone HCl 0.5 MG Q4P PRN 10/22 1630 DCD IV Oxycodone/ 1 TAB Q6P PRN 10/22 1630 DCD Acetaminophen PO Tamsulosin HCl 0.4 MG DAILY 10/23 1000 DCD 10/24 PO 1101 Assessment/Plan Assessment: This is a [age]-year-old male with a past medical history of hyperlipidemia who presented to the [facility] with increased palpitations and slight discomfort in the chest. The patient was found to be rapid atrial fibrillation with rapid ventricular response in the ER. Acute coronary syndrome was ruled out with serial troponin and EKG. Assessment 1. New onset atrial flutter/fibrillation: The patient was found to be in new onset rapid A. fib on admission, was started on IV Cardizem drip and eventually transitioned to by mouth Cardizem 120 mg however in the morning was taking a shower and walking he is heart rate went in to 150s again - We'll give an extra dose of by mouth Cardizem 30 mg, short-acting and reevaluate his rate - We'll continue with Eliquis - Will follow cardiology recommendations discuss uncontrolled heart rates with Dr. Wells 2. History of hyperlipidemia: - We'll continue with atorvastatin 3. History of benign prostate hyperplasia: - We'll continue tamsulosin Heart healthy DVT prophylaxis with Eliquis Full code Addendum: 3:30 PM The patient responded beautifully to an extra 30 mg of by mouth Cardizem and his heart rate came down very nicely to 70s and 80s. He was also made to walk around the [place] and check his heart rate which went up to 107-108 just once to 117. The patient continues to be asymptomatic with no chest heaviness/chest pain or palpitations. Discussed with Dr. Wells and Dr. King. He will be discharged on Cardizem 180 mg with a recommendation to follow-up with Dr. Pandey, for home he already has an appointment for 10/29/2016. Problem List: 1. Atrial flutter with rapid ventricular response Pain Ratin Pain Location: None Pain Goal: Remain pain free Pain Plan: PRN Tylenol Tomorrow's Labs & Rationales: None DVT/Prophylaxis: pharmacological Consulting Request: Consulting Specialty: Cardiology Consulting Physician: dr. Wells Reason for Consult: JUSTO Szymanski MD 10/24/16 1238: Attending MD Review Statement Attending Statement Attending MD Statement: examined this patient, agreed w/resident/PA/CONGRESSIONAL REPRESENTATIVE, discussed with family, reviewed EMR data (avail), discussed with nursing, amended to note Attending Assessment/Plan: Mr. Bautista noted some palpitations this a.m. some "heaviness" in his chest. His heart rate is mildly elevated today. He is been anticoagulated with apixaban and started on extended release diltiazem. He has received additional diltiazem to further control his rate. If his rate can be controlled to less than 100 and he is asymptomatic with activity at 1600 hrs. today he may be discharged and will follow-up as previously arranged.
[2016-10-24 09:02] VITALS: BP 78/42
[2016-10-24 09:04] VITALS: BP 104/69
[2016-10-24 15:40] VITALS: BP 122/68
[2016-10-24] MEDS ORDERED: CARDIZEM CD180 M1 PO (15:56)
--- NOTE | 2016-10-24 16:24 | PN- Cardiology ---
Subjective Subjective: No complaints. Ventricular response to his atrial fibrillation coming under reasonable control. Objective Vital Signs and I&Os Vital Signs Date Time Temp Pulse Resp B/P B/P Pulse O2 O2 Flow FiO2 Mean Ox Delivery Rate 10/24 1540 98.0 76 18 122/68 95 Room Air 10/24 1233 108/70 10/24 1101 106/80 10/24 0904 114 104/69 10/24 0902 99.5 147 18 78/42 97 10/23 2300 98.2 73 18 107/82 93 Room Air 10/23 1654 97.4 83 16 98/67 96 Room Air Intake & Output 10/24 1600 10/24 0800 10/24 0000 10/23 1600 10/23 0800 10/23 0000 Intake Total 200 120 480 575 360 Output Total 400 950 Balance 200 120 480 175 -590 Intake, IV 215 Intake, Oral 200 120 480 360 360 Output, Urine 400 950 Patient 217 lb Weight Weight Standing Scale Measurement Method Physical Exam: Well-developed, well-nourished elderly male in no acute distress. Vital signs: See above. Neck: No JVD, no bruits. Lungs: Clear to auscultation. Heart: S1, S2 (irregularly, irregular) with grade 1/6 systolic murmur. Abdomen: Soft, nontender, positive bowel sounds. Strategies: No edema. Current Medications: Current Medications Sig/Urbano Start time Last Medication Dose Route Stop Time Status Admin Acetaminophen 650 MG Q6P PRN 10/22 1630 AC PO Apixaban 5 MG BID 10/23 1200 AC 10/24 PO 1101 Atorvastatin Calcium 40 MG 1700 10/22 1700 AC 10/23 PO 1644 Calcium Carbonate 500 MG DAILY 10/24 0730 DC PO Calcium Carbonate 500 MG DAILY 10/24 0730 AC PO Diltiazem HCl 30 MG ONCE ONE 10/24 1130 DC 10/24 PO 10/24 1131 1233 Diltiazem HCl 120 MG DAILY 10/23 1200 AC 10/24 PO 0704 Heparin Sodium/ 25,000 UNIT Q24H 10/22 1245 DC 10/23 Dextrose IV 0531 Dextrose/Water 500 ML Hydromorphone HCl 0.5 MG Q4P PRN 10/22 1630 AC IV Oxycodone/ 1 TAB Q6P PRN 10/22 1630 AC Acetaminophen PO Tamsulosin HCl 0.4 MG DAILY 10/23 1000 AC 10/24 PO 1101 Results Last 48 Hrs of Labs/Mics: Laboratory Tests 10/24/16 0840: Troponin I < 0.01 10/23/16 1500: APTT Cancelled 10/23/16 0646: Anion Gap 10, Estimated GFR > 60, BUN/Creatinine Ratio 17.5, APTT > 120 *H, CBC w Diff NO MAN DIFF REQ, RBC 4.63 L, MCV 96.5 H, MCH 32.3 H, RDW 13.3, MPV 8.2 , Gran % 58.2, Lymphocytes % 31.2, Monocytes % 7.2, Eosinophils % 3.0, Basophils % 0.4, Absolute Granulocytes 4.3, Absolute Lymphocytes 2.3, Absolute Monocytes 0.5, Absolute Eosinophils 0.2, Absolute Basophils 0, PUBS MCHC 33.4 10/22/16 2247: Troponin I < 0.01 10/22/16 1915: APTT 80 H 10/22/16 1756: Troponin I 0.01 Assessment/Plan Assessment/Plan "New onset" atrial fibrillation/flutter with reasonable rate control on present regimen of diltiazem. He is also on full anticoagulation with the factor Xa inhibitor Eliquis ( apixaban) 5 mg 2x daily. Will plan for discharge to home and further outpatient management with Dr. Pandey.Paroxysmal atrial flutter and atrial fibrillation, rate under control Continue telemetry? No
--- NOTE | 2016-10-24 16:56 | Discharge Summary ---
Hospital Course Allergies: Coded Allergies: Penicillins (RASH 10/22/16) Discharge Instructions Medications at Discharge Discharge Medications: Continue taking these medications: Tamsulosin HCl (Tamsulosin HCl) 0.4 MG CAP.ER.24H 1 Capsule ORAL DAILY Qty = 90 Comments: Last Taken:10/24/16 Time:11 AM Rosuvastatin Calcium (Crestor) 10 MG TABLET 1 Tablet ORAL DAILY Qty = 90 Comments: Last Taken:NOT GIVEN IN THE HOSPITAL NOTE: LIPITOR GIVEN AT 1644 ON 10/23/16 Start taking the following new medications: Apixaban (Eliquis) 5 MG TABLET 1 Tablet ORAL TWICE DAILY Qty = 60 No Refills Instructions: . Comments: Last Taken:10/24/16 Time:11 AM Diltiazem HCl (Cardizem Cd) 180 MG CAP.ER.24H 1 Capsule ORAL DAILY Qty = 30 No Refills Comments: Last Taken:10/24/16 Time:0700 AM
--- NOTE | 2016-10-30 19:31 | Discharge Summary ---
Visit Information Visit Dates Admission Date: 10/22/16 Discharge Date: 10/24/16 Hospital Course Course Attending Physician: CYNTHIA ABDULLAHI MD Primary Care Physician: CYNTHIA ABDULLAHI MD Consulting Request: Consulting Specialty: Cardiology Consulting Physician: dr. Wells Reason for Consult: A fib Hospital Course: 75-year-old white male came into the hospital with palpitations about the day duration he had gone first to clinic with a found an irregular beats and into the ER at first was found to be in flutter fib and then definitely in atrial fibrillation was evaluated treatment was started and eventually converted to normal sinus rhythm patient was seen by cardiology recommendations were given. Patient improved and was discharged in stable condition to follow with a tester regulator and myself Complications: None Allergies: Coded Allergies: Penicillins (RASH 10/22/16) Significant Procedures: Patient had serial EKGs Pertinent Lab Results: Laboratory Tests 10/23/16 0646: Anion Gap 10, Estimated GFR > 60, BUN/Creatinine Ratio 17.5, APTT > 120 *H, CBC w Diff NO MAN DIFF REQ, RBC 4.63 L, MCV 96.5 H, MCH 32.3 H, RDW 13.3, MPV 8.2 , Gran % 58.2, Lymphocytes % 31.2, Monocytes % 7.2, Eosinophils % 3.0, Basophils % 0.4, Absolute Granulocytes 4.3, Absolute Lymphocytes 2.3, Absolute Monocytes 0.5, Absolute Eosinophils 0.2, Absolute Basophils 0, PUBS MCHC 33.4 10/22/16 2247: Troponin I < 0.01 10/22/16 1915: APTT 80 H 10/22/16 1756: Troponin I 0.01 Disposition Summary Disposition Principal Diagnosis: Atrial fibrillation new onset Additional Diagnosis: Hyperlipidemia BPH Discharge Disposition: home or self care Discharge Instructions General Discharge Information Code Status: Full Code Patient's Diet: Has a heart Patient's Activity: As tolerated Follow-Up Instructions/Appts: Follow-up with cardiology and Dr. Abdullahi Medications at Discharge Discharge Medications: Continue taking these medications: Tamsulosin HCl (Tamsulosin HCl) 0.4 MG CAP.ER.24H 1 Capsule ORAL DAILY Qty = 90 Comments: Last Taken:10/24/16 Time:11 AM Rosuvastatin Calcium (Crestor) 10 MG TABLET 1 Tablet ORAL DAILY Qty = 90 Comments: Last Taken:NOT GIVEN IN THE HOSPITAL NOTE: LIPITOR GIVEN AT 1644 ON 10/23/16 Start taking the following new medications: Apixaban (Eliquis) 5 MG TABLET 1 Tablet ORAL TWICE DAILY Qty = 60 No Refills Instructions: . Comments: Last Taken:10/24/16 Time:11 AM Diltiazem HCl (Cardizem Cd) 180 MG CAP.ER.24H 1 Capsule ORAL DAILY Qty = 30 No Refills Comments: Last Taken:10/24/16 Time:0700 AM Copies To: Steve LAZO MD; CYNTHIA ABDULLHAI MD Attending Review Statement Documenting Attending: CYNTHIA ABDULLAHI MD
== END 2016-10-24 17:15 | DRG 310 ==
LOC: ERH 10:24 → 1NO 14:25 → ERHI 14:25 → ENRESERV 17:17 → ENTRNSPT 21:01 → 1NO 21:30 → CMPTRNSPT 22:32 → 1NO 10-23 08:37
PROVIDERS: Emergency Medicine; Internal Medicine Nephrology; ADMIT Internal Medicine
DX: I48.0 Paroxysmal atrial fibrillation (principal); E78.5 Hyperlipidemia, unspecified; I48.92 Unspecified atrial flutter; Z79.01 Long term (current) use of anticoagulants; N40.0 Benign prostatic hyperplasia without lower urinary tract symptoms
CPT/HCPCS: 1NSP; 36415; 82436; 93005; 93010; 96374; 96375; 96376; 99291; J1644; J7060

== ENCOUNTER 2016-11-08 04:46 | Emergency (ER) | payer OTHER ==
[~2016-11-08 04:46] MED LIST: CARDIZEM CD120 M2 PO; CARDIZEM CD180 M1 PO; CRESTOR10 M1 PO; ELIQUIS5 M1 PO; TAMSULOSIN HCL0.4 M1 PO
--- NOTE | 2016-11-08 05:02 | ED GI/GU/ABDOMINAL COMPLAINT ---
History of Present Illness General Chief Complaint: General Adult Stated Complaint: CONSTIPATION Source: patient, family Exam Limitations: no limitations Vital Signs & Intake/Output Vital Signs & Intake/Output Vital Signs Date Time Temp Pulse Resp B/P B/P Pulse O2 O2 Flow FiO2 Mean Ox Delivery Rate 11/08 0557 110/72 / 0557 74 110/70 11/08 0532 74 16 98 Room Air 11/08 0510 98 Room Air 11/08 0501 96.2 155 24 98/66 96 Room Air Allergies Coded Allergies: Penicillins (RASH 10/22/16) Reconcile Medications Apixaban (Eliquis) 5 MG TABLET 1 TAB PO BID afib . Diltiazem HCl (Cardizem Cd) 180 MG CAP.ER.24H 1 CAP PO DAILY a flutter Rosuvastatin Calcium (Crestor) 10 MG TABLET 1 TAB PO DAILY CHOLESTEROL ( Reported) Tamsulosin HCl 0.4 MG CAP.ER.24H 1 CAP PO DAILY PROSTATE (Reported) Triage Nurses Notes Reviewed? yes Onset: Gradual Duration: day(s): (5-7) Timing: recent history Location: RECTUM Radiation: no radiation Activities at Onset: none Associated Symptoms: CONSTIPATION, RECTAL PAIN, PALPITATIONS HPI: This is a 76-year-old male who presents to the ER chief complaint of constipation since . He tried to give him a suppository at home without relief. He states he feels like there is a hard ball sitting in his rectum. Pain is severe, 10 out of 10 just at the rectum. No fever chills nausea vomiting. Denies any abdominal pain. Change in medications over the past year but nothing recently. He states prior to this he was just having small hard balls of stool come out. Patient with a history of recent new diagnosis of A. fib. He states these feels his heart fluttering. Denies any chest pain. Past History Travel History Traveled to [place] past 21 day No Medical History Any Pertinent Medical History? see below for history Cardiovascular: AFIB, hyperlipidemia History of MRSA: No History of VRE: No History of CDIFF: No Surgical History Surgical History: none Psychosocial History Who do you live with Spouse Services at Home None What is your primary language Romansh Family History Family History, If Any: MOTHER Relation not specified for: FH: hypertension Hx Contributory? No Review of Systems Review of Systems Constitutional: Denies: chills, fever. EENTM: Reports: no symptoms. Respiratory: Denies: cough, short of breath. Cardiovascular: Reports: palpitations. GI: Reports: see HPI (RECTAL PAIN), constipation. Denies: abdominal pain, nausea, vomiting. Genitourinary: Reports: no symptoms. Musculoskeletal: Reports: no symptoms. Skin: Reports: no symptoms. Neurological/Psychological: Reports: anxiety. Hematologic/Endocrine: Denies: bruising, bleeding. Immunologic/Allergic: Reports: no symptoms. All Other Systems: Reviewed and Negative Physical Exam Physical Exam General Appearance: well developed/nourished, alert, awake, anxious, mild distress Head: atraumatic, active bleeding Ears, Nose, Throat, Mouth: hearing grossly normal Neck: normal inspection, supple, full range of motion Respiratory: normal breath sounds, chest non-tender, no respiratory distress Cardiovascular: tachycardia Peripheral Pulses: 2+ radial (R), 2+ radial (L) Gastrointestinal: soft, no organomegaly Rectal: FECAL IMPACTION IN RECTUM Male Genitals: normal genitalia Neurologic/Psych: no motor/sensory deficits, awake, alert, oriented x 3 Skin: intact, normal color, warm/dry Core Measures ACS in differential dx? No Severe Sepsis Present: No Septic Shock Present: No Progress Differential Diagnosis: CONSTIPATION, FECAL IMPACTION, AFIB, AFLUTTER Plan of Care: 5:10 AM MANUAL FECAL DISIMPACTION PERFORMED 5:55 AM PATIENT FEELING MUCH IMPROVED AFTER MANUAL DISIMPACTION and patient had multiple bowel movements in the ED. Heart rate in 80's. BP wnl. No chest pain or shortness of breath. Wants to go home at this time. Initial ED EKG: none Rhythm Strip: ATRIAL FLUTTER, 80-90 BPM Departure Departure Time of Disposition: 554 Disposition: HOME OR SELF CARE Condition: Stable Clinical Impression Primary Impression: Fecal impaction in rectum Referrals: CYNTHIA COX MD (PCP/Family) Additional Instructions: Take Colace 2-3 times a day as instructed. Drink plenty of fluids. Please follow up with her doctor in the office. Return as needed. Departure Forms: Customer Survey General Discharge Information
[2016-11-08 05:57] VITALS: BP 110/72
== END 2016-11-08 05:59 ==
LOC: ERH 04:46
DX: K56.41 Fecal impaction (principal)